=== PATIENT | male | born 1945 | race Caucasian/White ===

== ENCOUNTER 2017-10-27 09:50 | Emergency (ER) | payer OTHER ==
[2017-10-27] MEDS: KETOROLAC TROMETHAMINE 60 MG/2 ML VIAL IM ONE (10:22)
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
[2017-10-27 11:26] VITALS: BP 151/75
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
== END 2017-10-27 11:23 | disposition home or self-care (01) ==
LOC: ED 09:50 → EDBD 09:50 → ED 11:23
DX: M25.532 Pain in left wrist (principal); S69.82XA Other specified injuries of left wrist, hand and finger(s), initial encounter; X58.XXXA Exposure to other specified factors, initial encounter; Y93.9 Activity, unspecified; Y92.9 Unspecified place or not applicable; Y99.9 Unspecified external cause status; V89.2XXA Person injured in unspecified motor-vehicle accident, traffic, initial encounter; M54.2 Cervicalgia
CPT/HCPCS: 72125; 73130; J1885; L3908; 96372; 99284